=== PATIENT | female | born 1925 | race Caucasian/White ===

== ENCOUNTER → 2016-02-29 | Outpatient (CLI) | payer OTHER, BC ==
--- NOTE | 2016-02-29 11:06 | US ---
Bilateral Lower Extremity Ultrasound and Venous Duplex Doppler Study History: Redness and cramping, history of previous DVT. Comparison: Bilateral lower extremity ultrasound March 11, 2013. Technique: High frequency transducer was used for imaging and Doppler study of the veins of the righ t and left lower extremities. Pulsed Doppler and color Doppler were utilized, along with various ma neuvers to assess flow in the veins. Findings: Right: The deep veins of the right lower extremity are normally compressible between the groin and th e upper calf. They have normal Doppler waveforms within them. No venous thrombosis is identified. Left: A linear filling defect in the common femoral vein is similar to the comparison, suggesting seq uela of previous DVT. Linear filling defect in the distal femoral vein suggests sequela of chronic DV T, with no visible correlate on the previous study. The deep veins of the left lower extremity are ot herwise normally compressible between the groin and the upper calf. They have normal Doppler waveform s within them. Impression: 1. Linear filling defects in the left common femoral (unchanged since 2013) and distal femoral vein ( not visible in 2014), suggesting sequela of chronic DVT. 2. No DVT in the right lower extremity. Findings discussed with Asiya Duke MA, today at 1102 hours.
== END ==
LOC: BMCIMAGING 10:00
PROVIDERS: ATTEND Podiatrist Foot & Ankle Surgery
DX: M79.661 Pain in right lower leg (principal); M79.662 Pain in left lower leg

== ENCOUNTER → 2016-03-29 | Outpatient (CLI) | payer OTHER, BC | LOC: FIMAGING 15:21 | PROVIDERS: ATTEND Internal Medicine Hematology & Oncology | DX: M79.662 Pain in left lower leg (principal); M79.89 Other specified soft tissue disorders ==

== ENCOUNTER → 2016-04-05 | Outpatient (CLI) | payer OTHER, BC | LOC: FIMAGING 12:53 | DX: Z12.31 Encounter for screening mammogram for malignant neoplasm of breast (principal); Z85.3 Personal history of malignant neoplasm of breast | CPT/HCPCS: G0202-52 ==